=== PATIENT | female | born 1985 | race African-American/Black ===

== ENCOUNTER 2020-11-06 05:23 | Inpatient (IN) ==
[2020-11-06] MEDS ORDERED: LACTATED RINGERS 1,000 ML IV SCH (06:00)
[2020-11-06 06:13] LABS: Basophils % 0.4 % (0.0-0.8); Eosinophils # 0.1 10*3/uL (0.0-0.87); Eosinophils % 0.6 % (0.00-10.9); Hematocrit 35.2 VOL% (35.7-47.0); Hemoglobin 11.5 GM/DL (12.0-16.0); Immature Granulocytes % 0.6 %; Immature Granulocytes Absolute 0.05 #; Lymphocytes # 2.1 10*3/uL (1.4-4.0); Lymphocytes % 25.2 % (21.3-54.2); Mean Corpuscular HGB Conc 32.7 GM/DL (32-36); Mean Corpuscular Volume 86.7 FL (87-102); Mean Platelet Volume 9.4 FL (9.6-12.0); Monocytes % 8.4 % (1.7-12.7); Neutrophils % 64.8 % (38.7-73.9); Platelet Count 298 T/CUMM (130-400); Red Blood Count 4.06 MC/CUMM (3.8-5.5); Red Cell Distribution Width 13.1 % (9.3-17.3); White Blood Count 8.2 T/CUMM (4-12)
[2020-11-06 06:30] LABS: Hypochromasia Slight; Microcytosis Slight; Platelet Estimate Adequate
[2020-11-06] MEDS ORDERED: CITRIC ACID/SODIUM CITRATE 30 ML UDCUP PO ONE (06:30)
[2020-11-06] MEDS ORDERED: FAMOTIDINE 20 MG/2 ML VIAL IV ONE (06:30)
[2020-11-06] MEDS ORDERED: OXYTOCIN/LR 20 UNIT/1,000 ML BAG IV ONE ×3 (06:31→09:06)
[2020-11-06] MEDS ORDERED: BUPIVACAINE SPINAL 0.75% 2 ML AMP SPINAL ONE ×2 (06:45)
[2020-11-06] MEDS ORDERED: ONDANSETRON 4 MG/2 ML VIAL ONE (07:22)
[2020-11-06] MEDS ORDERED: propofoL 200 MG/20 ML VIAL IV ONE (07:22)
[2020-11-06] MEDS ORDERED: METOCLOPRAMIDE 10 MG/2 ML VIAL ONE (07:22)
[2020-11-06] MEDS ORDERED: METHYLERGONOVINE 0.2 MG/1 ML AMP ONE (07:23)
[2020-11-06] MEDS ORDERED: miSOPROStoL 200 MCG TABLET ONE (07:23)
[2020-11-06] MEDS ORDERED: CARBOPROST TROMETHAMINE 250 MCG/ML AMP IM ONE (07:24)
[2020-11-06] MEDS ORDERED: MIDAZOLAM 2 MG/2 ML VIAL ONE (07:44)
[2020-11-06 08:22] LABS: Cord Arterial Blood HCO3 21.9 MMOL/L
[2020-11-06 08:24] LABS: Cord Venous Blood HCO3 24.4 MMOL/L; Cord Venous Blood PCO2 44.5 MMHG; Cord Venous Blood PO2 26.2 MMHG
[2020-11-06 08:26] LABS: Bacteria,Urine Occasional /HPF (Few); Bilirubin,Urine Negative (Negative); Blood, Urine Negative (Negative); Glucose,Urine (UA) Negative (Negative); Ketones,Urine Negative (Negative); Mucus,Urine Few /LPF (Occasional); Nitrite,Urine Negative (Negative); Protein,Urine 30 MG/DL; RBC,Urine 1 /HPF (0-4); Squamous Epithelial Cell,Urine Occasional /HPF (0-10); Urine Appearance CLEAR (Clear); Urine Color Yellow (Yellow); Urine Specific Gravity 1.018 (1.001-1.035)
[2020-11-06] MEDS ORDERED: oxyCODONE/ACETAMINOPHEN 5-325 MG TABLET PO PRN ×3 (09:06→18:07)
[2020-11-06] MEDS ORDERED: WITCH HAZEL PADS 100/JAR TOP PRN (09:06)
[2020-11-06] MEDS ORDERED: LANOLIN 50% CREAM 0.3 OZ TUBE TOP PRN (09:06)
[2020-11-06] MEDS ORDERED: DIPH/TET/ACEL PERT BOOSTER VACCINE 0.5 ML VIAL IM ONE (09:06)
[2020-11-06] MEDS ORDERED: HYDROCORTISONE 2.5% RECTAL CREAM 30 GM TUBE TOP PRN (09:06)
[2020-11-06] MEDS ORDERED: BISACODYL 10 MG SUPP RECTAL PRN (09:06)
[2020-11-06] MEDS ORDERED: BENZOCAINE 20%/MENTHOL 0.5% SPRAY 56 GM CAN TOP PRN (09:06)
[2020-11-06] MEDS ORDERED: IBUPROFEN 800 MG TABLET PO PRN (09:06)
[2020-11-06] MEDS ORDERED: MEASLES/MUMPS/RUBELLA VACCINE 0.5 ML VIAL SUBCUT ONE (09:06)
[2020-11-06] MEDS ORDERED: ACETAMINOPHEN 325 MG TABLET PO PRN (09:06)
[2020-11-06] MEDS ORDERED: ONDANSETRON 4 MG/2 ML VIAL IV PRN (09:06)
[2020-11-06] MEDS ORDERED: RHO(D) IMMUNE GLOBULIN 300 MCG SYRINGE IM ONE (09:06)
[2020-11-06] MEDS ORDERED: KETOROLAC 30 MG/1 ML VIAL IV PRN (11:23)
[2020-11-06] MEDS ORDERED: HYDROmorphone 2 MG/1 ML VIAL IV PRN (11:37)
[2020-11-06] MEDS ORDERED: ACETAMINOPHEN 500 MG TABLET PO PRN (14:30)
[2020-11-06] MEDS: LACTATED RINGERS 1,000 ML IV SCH (15:42)
[2020-11-06] MEDS: KETOROLAC 30 MG/1 ML VIAL IV SCH ×2 (17:35→23:30)
[2020-11-06] MEDS: DOCUSATE SODIUM 100 MG CAPSULE PO SCH (20:49)
[2020-11-06] MEDS: ACETAMINOPHEN 500 MG TABLET PO SCH (20:49)
[2020-11-06] MEDS ORDERED: DOCUSATE SODIUM 100 MG CAPSULE PO SCH (21:00)
[2020-11-07] MEDS: LACTATED RINGERS 1,000 ML IV SCH (00:12)
[2020-11-07] MEDS: ACETAMINOPHEN 500 MG TABLET PO SCH ×2 (03:30→12:04)
[2020-11-07 03:41] LABS: Basophils % 0.3 % (0.0-0.8); Eosinophils # 0.1 10*3/uL (0.0-0.87); Eosinophils % 0.9 % (0.00-10.9); Hematocrit 30.9 VOL% (35.7-47.0); Hemoglobin 10.2 GM/DL (12.0-16.0); Immature Granulocytes % 0.3 %; Immature Granulocytes Absolute 0.03 #; Lymphocytes # 2.2 10*3/uL (1.4-4.0); Lymphocytes % 24.8 % (21.3-54.2); Mean Corpuscular Volume 87.5 FL (87-102); Neutrophils % 63.7 % (38.7-73.9); Platelet Count 234 T/CUMM (130-400); Red Blood Count 3.53 MC/CUMM (3.8-5.5); Red Cell Distribution Width 13.2 % (9.3-17.3); White Blood Count 8.9 T/CUMM (4-12)
[2020-11-07] MEDS: KETOROLAC 30 MG/1 ML VIAL IV SCH (05:51)
[2020-11-07] MEDS: oxyCODONE/ACETAMINOPHEN 5-325 MG TABLET PO PRN ×3 (05:53→23:31)
[2020-11-07 07:33] LABS: Band Neutrophils 4 % (0-10); Lymphocytes 14 % (20-55); Segmented Neutrophils 73 % (50-85); Total Cells Counted 100
[2020-11-07 07:34] LABS: Platelet Estimate Normal
[2020-11-07] MEDS: DOCUSATE SODIUM 100 MG CAPSULE PO SCH ×2 (08:20→21:32)
[2020-11-07] MEDS: SIMETHICONE CHEW 80 MG TABLET PO PRN ×2 (09:08→21:32)
[2020-11-07] MEDS: MAGNESIUM HYDROXIDE SUSP 30 ML UDCUP PO PRN ×2 (09:08→21:33)
[2020-11-07] MEDS: IBUPROFEN 800 MG TABLET PO PRN ×2 (09:08→17:34)
[2020-11-08] MEDS: IBUPROFEN 800 MG TABLET PO PRN (04:02)
[2020-11-08] MEDS: oxyCODONE/ACETAMINOPHEN 5-325 MG TABLET PO PRN (08:11)
[2020-11-08] MEDS: DOCUSATE SODIUM 100 MG CAPSULE PO SCH (08:11)
[2020-11-08] MEDS: MAGNESIUM HYDROXIDE SUSP 30 ML UDCUP PO PRN (08:11)
[2020-11-08] MEDS: SIMETHICONE CHEW 80 MG TABLET PO PRN (08:11)
[2020-11-08 09:09] VITALS: BP 123/83
== END 2020-11-08 13:50 | disposition home or self-care (01) | DRG 540 ==
LOC: N.LD 05:23 → N.OB 15:39
PROVIDERS: ADMIT Specialist; ATTEND Specialist